=== PATIENT | male | born 1940 | race Caucasian/White ===

== ENCOUNTER 2017-01-22 06:31 | Day surgery (SDC) | payer BC, MEDICARE ==
[~2017-01-22] VITALS: Ht 160 cm; Wt 78.8 kg
[~2017-01-22 06:31] MED LIST: ASPI-730 PO; CHLO25TA2 PO; FENO48TA5 PO; FOLI-40 PO; INSU100I6 SQ; INSU3INS3 SQ; LOSA25TA34 PO; METF-200 PO; METH2.5T33 PO; OMEP40CA52 PO; PRAV10TA26 PO
--- OUTSIDE RECORDS SUMMARY | 2017-01-22 06:37 | XMS REPORT | Referral Summary ---
Author Author [facility] Organization [facility] Address Unknown Phone Unavailable Care Team Providers Care Equipment Validation Specialist Name Role Phone Nazanin Mueller Primary Care Physician [phone] Encounter VC Date(s): 07/04/16 - 07/04/16 [facility] [address] [place] [address] [place] [address]- [place] Discharge Diagnosis: History of skin cancer Discharge Diagnosis: Actinic keratosis Discharge Diagnosis: Dysphagia Discharge Diagnosis: Dyskinesia of esophagus Discharge Disposition: -Home or Self Care Attending Physician: Daniel Alaniz MD Admitting Physician: Daniel Alaniz MD Referring Physician: Gilberto Mueller MD Vital Signs Most recent to 1 oldest [Reference Range]: Temperature Tympanic 37 degC [36.6-38.1 degC] (07/04/16 1:19 PM) Peripheral Pulse 78 bpm Rate [60-100 bpm] (07/04/16 1:19 PM) Blood Pressure 144/72 mmHg [90-140/60-90 mmHg] *HI* (07/04/16 1:19 PM) SpO2 96 % (07/04/16 1:19 PM) Problem List Condition Effective Dates Status Health Status Informant Actinic keratosis Active (disorder)(Confirmed ) Aortic valve Active disease(Confirmed) Benign essential Active hypertension (disorder)(Confirmed ) CAD(Confirmed)1 Resolved Coronary Active arteriosclerosis (disorder)(Confirmed ) Osteoarthrosis, Active hand(Confirmed) Diabetes type 2, Active uncontrolled(Confirm ed) Dyspepsia and other Active specified disorders of function of stomach(Confirmed) Therapeutic drug Active monitoring(Confirmed ) Dyslipidemia(Confirm Resolved ed) Gastroesophageal Active reflux disease (disorder)(Confirmed ) H/O heart valve Resolved replacement with bioprosthetic valve(Confirmed) Hearing Active loss(Confirmed) Heart Active murmur(Confirmed) History of colon 1989 Resolved cancer(Confirmed)2, 3 Hyperlipidemia(Confi Active rmed) Hypertension(Confirm Resolved ed) Urinary Active frequency(Confirmed) Irritable Active colon(Confirmed) Hypertonicity of Active bladder(Confirmed) BCC (basal cell 2012 Active carcinoma of skin)(Confirmed)4 Obesity(Confirmed) Active patient Overweight(Confirmed Active ) PUD (peptic ulcer Active disease)(Confirmed) Rheumatoid arthritis Active (disorder)(Confirmed ) Ulcers(Confirmed) Active Varicella without Active complication(Confirm ed) 1Dr. Santiago 2Dukgeoffrey Pfeiffer colon cancer 3hx colon polyps 4right cheek Allergies, Adverse Reactions, Alerts No Known Allergies Medications aspirin 325 mg oral tablet 1 tabs, Oral, Daily Start Date: 03/04/14 Status: Ordered chlorthalidone 25 mg oral tablet See Instructions, TAKE ONE TABLET BY MOUTH DAILY, # 30 tabs, 5 Refill(s), eRx: [facility] #[id number], TAKE ONE TABLET BY MOUTH DAILY Start Date: 03/21/16 Status: Ordered Efudex 5% topical cream 1 antonino, Topical, BID, # 40 g, 0 Refill(s), Pharmacy: [facility] #[id number] Start Date: 07/04/16 Status: Ordered fenofibrate 48 mg oral tablet See Instructions, TAKE ONE TABLET BY MOUTH DAILY, # 30 tabs, 5 Refill(s), eRx: [facility] #[id number], TAKE ONE TABLET BY MOUTH DAILY Start Date: 06/29/16 Status: Ordered folic acid 1 mg oral tablet See Instructions, TAKE ONE TABLET BY MOUTH EVERY DAY, # 90 tabs, 3 Refill(s), Pharmacy: [facility] #[id number], TAKE ONE TABLET BY MOUTH EVERY DAY Start Date: 01/19/16 Status: Ordered FREESTYLE LITE TEST STRIP See Instructions, TEST BLOOD SUGARS 1 OR 2 TIMES DAILY, # 100 strip, 2 Refill(s) , eRx: [facility] #[id number], TEST BLOOD SUGARS 1 OR 2 TIMES DAILY Start Date: 03/21/16 Status: Ordered FREESTYLE LITE TEST STRIP See Instructions, TEST BLOOD SUGARS FASTING OR 2 HOURS AFTER MEALS., # 100 strip , 2 Refill(s), eRx: [facility] #[id number], TEST BLOOD SUGARS FASTING OR 2 HOURS AFTER MEALS. Start Date: 09/02/14 Status: Ordered Glucometer strips (DME) DME Item Freestyle lite test strips- Use to check blood sugar 1-2 times daily as directed, See Instructions, # 1 boxes, 3 Refill(s), Pharmacy: [facility] #[id number], Freestyle lite test strips- Use to check blood sugar 1-2 times daily as directed,... Start Date: 01/21/15 Status: Ordered Insulin Pin [place] (DME) DME Item Use to adminster insulin 4 times daily as directed, See Instructions, Supply Start Date: 03/04/14 Status: Ordered Insulin Pin [place] (DME) DME Item USE WITH INSULIN PENS QID FOR DIABETES TYPE 2 250.00, See Instructions , # 1 boxes, 3 Refill(s), Pharmacy: [facility] #[id number], USE WITH INSULIN PENS QID FOR DIABETES TYPE 2 250.00, Supply Start Date: 11/16/14 Status: Ordered Lantus Solostar Pen 100 units/mL subcutaneous solution See Instructions, INJECT 34 UNITS SUB-Q EVERY EVENING, # 24 unknown unit, 3 Refill(s), eRx: [facility] #[id number], INJECT 30 UNITS SUB-Q EVERY EVENING Start Date: 01/24/16 Status: Ordered losartan 25 mg oral tablet See Instructions, TAKE ONE TABLET BY MOUTH ONE TIME A DAY, # 30 tabs, 5 Refill(s ), eRx: [facility] #[id number], TAKE ONE TABLET BY MOUTH ONE TIME A DAY Start Date: 04/24/16 Status: Ordered metFORMIN 500 mg oral tablet See Instructions, TAKE TWO TABLETS BY MOUTH TWICE A DAY, # 120 tabs, 2 Refill(s) , eRx: [facility] #[id number], TAKE TWO TABLETS BY MOUTH TWICE A DAY Start Date: 03/22/16 Status: Ordered methotrexate 2.5 mg oral tablet See Instructions, TAKE 7 TABLETS BY MOUTH ONCE WEEKLY, # 91 tabs, 1 Refill(s), Pharmacy: [facility] #[id number], TAKE 7 TABLETS BY MOUTH ONCE WEEKLY Start Date: 01/19/16 Status: Ordered NovoLOG FlexPen 100 units/mL subcutaneous solution See Instructions, INJECT 10 UNITS SUBCUTANEOUSLY WITH BREAKFAST AND 12 UNITS WITH SUPPER, OR DIRECTED, # 24 unknown unit, 3 Refill(s), eRx: [facility] #[id number], INJECT 8 UNITS SUBCUTANEOUSLY WITH BREAKFAST AND 10 UNITS WITH SUPPER, OR DIRECTED Start Date: 02/09/16 Status: Ordered omeprazole 20 mg oral delayed release capsule See Instructions, TAKE ONE CAPSULE BY MOUTH EVERY DAY NEEDED, # 90 caps, eRx : [facility] #[id number], TAKE ONE CAPSULE BY MOUTH EVERY DAY NEEDED Start Date: 01/28/15 Status: Ordered pravastatin 10 mg oral tablet See Instructions, TAKE ONE TABLET BY MOUTH EVERY DAY, # 30 tabs, 5 Refill(s), eRx: [facility] #[id number], TAKE ONE TABLET BY MOUTH EVERY DAY Start Date: 02/15/16 Status: Ordered Results No data available for this section Immunizations Vaccine Date Refusal Reason influenza virus vaccine, inactivated 07/22/15 influenza virus vaccine, inactivated1 07/14/14 influenza virus vaccine, live 07/15/13 influenza virus vaccine, live 05/28/12 pneumococcal 13-valent conjugate vaccine 01/21/15 pneumococcal 23-polyvalent vaccine 10/18/09 pneumococcal 23-polyvalent vaccine 10/11/01 tetanus-diphth toxoids (Td) adult/adol 03/27/06 1Result Comment: [07/14/2014] SEE SCANNED DOCUMENT Procedures Procedure Date Related Diagnosis Body Site Excision of basal cell carcinoma1 01/06/16 Excision of basal cell carcinoma2 08/25/14 S/P colonoscopy3 11/27/13 Diabetic eye exam - neg by hx 08/2011 S/P colonoscopy4, 5 06/07/09 S/p knee replacement, left 2005 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 Also excision above right eyebrow with primary closure 2Left nares 3tubular adenoma x4, diverticula; repeat 3 years 4pandiverticulosis, pers hx for colon ca; repeat 5 years 5negative 6for 7colon cancer Social History Social History Type Response Smoking Status Never smoker Assessment and Plan Extracted from: Title: Ambulatory Patient Education Author: Daniel Alaniz MD Date: Family Medicine Actinic Keratosis Actinic keratosis is a precancerous growth on the skin. This means it could develop into skin cancer if it is not treated. About 1% of actinic keratoses turn into skin cancer within a year. It is important to have all such growths removed to prevent them from developing into skin cancer. CAUSES Actinic keratosis is caused by getting too much ultraviolet (UV) radiation from the sun or other UV light sources. RISK FACTORS Factors that increase your chances of getting actinic keratosis include: Having light-colored skin and blue eyes. Having blonde or red hair. Spending a lot of time in the sun. Age. The risk of actinic keratosis increases with age. SYMPTOMS Actinic keratosis growths look like scaly, rough spots of skin. They can be as small as a pinhead or as big as a quarter. They may itch, hurt, or feel sensitive. Sometimes there is a little tag of pink or quezada skin growing off them. In some cases, actinic keratoses are easier felt than seen. They do not go away with the use of moisturizing lotions or creams. Actinic keratoses appear most often on areas of skin that get a lot of sun exposure. These areas include the: Scalp. Face. Ears. Lips. Upper back. Backs of the hands. Forearms. DIAGNOSIS Your health care provider can usually tell what is wrong by performing a physical exam. A tissue sample (biopsy) may also be taken and examined under a microscope. TREATMENT Actinic keratosis can be treated several ways. Most treatments can be done in your health care provider's office. Treatment options may include: Curettage. A tool is used to gently scrape off the growth. Cryosurgery. Liquid nitrogen is applied to the growth to freeze it. The growth eventually falls off the skin. Medicated creams, such as 5-fluorouracil or imiquimod. The medicine destroys the cells in the growth. Chemical peels. Chemicals are applied to the growth and the outer layers of skin are peeled off. Photodynamic therapy. A drug that makes your skin more sensitive to light is applied to the skin. A strong, blue light is aimed at the skin and destroys the growth. PREVENTION To prevent future sun damage: Try to avoid the sun between 10:00 a.m. and 4:00 p.m. when it is the strongest. Use a sunscreen or sunblock with SPF 30 or greater. Apply sunscreen at least 30 minutes before exposure to the sun. Always wear protective hats, clothing, and sunglasses with UV protection. Avoid medicines, herbs, and foods that increase your sensitivity to sunlight. Avoid tanning beds. HOME CARE INSTRUCTIONS If your skin was covered with a bandage, change and remove the bandage as directed by your health care provider. Keep the treated area dry as directed by your health care provider. Apply any creams as prescribed by your health care provider. Follow the directions carefully. Check your skin regularly for any changes. Visit a skin doctor (sand mill operator facing sand) every year for a skin exam. SEEK MEDICAL CARE IF: Your skin does not heal and becomes irritated, red, or bleeds. You notice any changes or new growths on your skin. This information is not intended to replace advice given to you by your health care provider. Make sure you discuss any questions you have with your health care provider. Document Released: 11/30/2009 Document Revised: 09/24/2015 Document Reviewed: [employer] Interactive Patient Education 2016 [employer] No follow up information was provided. Extracted from: Title: Office Visit Note Author: Daniel Alaniz MD Date: 07/04/16 Assessment/Plan 1.Actinic keratosis Ordered: fluorouracil topical, 1 antonino, Topical, BID, # 40 g, 0 Refill(s), Pharmacy: [facility] #[id number] Office Visit Level 4 Est 65061 2.Dysphagia, Dyskinesia of esophagus Ordered: Office Visit Level 4 Est 38677 3.History of skin cancer Ordered: Office Visit Level 4 Est 49642 Plan: Esophagogastroduodenoscopywith possible dilatation. E prescription givenfor Efudexfor treatment of numerous actinic keratotic-appearing skin lesions. I did review the patient's chartincluding office note performed by his primary care physician from May 31, 2016. Reviewed a prioroperative note from excision of2 skin malignancies involving his face fromDecember 2015. Reviewed prior colonoscopy reportfromMay 2013. Patient was found to have several adenomatous colon polyps and a repeat colonoscopy was recommended at a 3 year interval. I informed the patient that with his history for dysphagia I would recommend proceeding with esophagogastroduodenoscopy with probable dilatation. Risk of endoscopy/dilatation was discussed with the patient. Risks include but are not inclusive of bleeding and/or perforation requiring surgery. Patient understood and was scheduled. In regards to his several actinic keratotic-appearing lesions involving his forehead andfaceE prescription was given for Efudex.
--- OUTSIDE RECORDS SUMMARY | 2017-01-22 06:37 | XMS REPORT | Referral Summary ---
Author Author [facility] Organization [facility] Address Unknown Phone Unavailable Care Team Providers Care Quality Process Auditor Name Role Phone Nazanin Mueller Primary Care Physician [phone] Encounter VC Date(s): 07/13/16 - 07/13/16 [facility] [address] [place] [address] [place] [address]- Discharge Diagnosis: Other specified rheumatoid arthritis, multiple sites Discharge Diagnosis: High risk medication use Discharge Disposition: 01-Home or Self Care Attending Physician: Rosa Gordon MD Admitting Physician: Rosa Gordon MD Referring Physician: Gilberto Mueller MD Vital Signs Most recent to 1 oldest [Reference Range]: Peripheral Pulse 73 bpm Rate [60-100 bpm] (07/13/16 3:22 PM) Respiratory Rate 16 br/min [14-20 br/min] (07/13/16 3:22 PM) Blood Pressure 128/77 mmHg [90-140/60-90 mmHg] (07/13/16 3:22 PM) Problem List Condition Effective Dates Status [...] Varicella without Active complication(Confirm ed) 1Dr. Santiago 2Dalex Pfeiffer colon cancer 3hx colon polyps 4right cheek Allergies, Adverse Reactions, Alerts No Known Allergies Medications aspirin 325 mg oral tablet 1 tabs, Oral, Daily Start Date: 03/04/14 Status: Ordered Carafate 1 g/10 mL oral suspension g mL, Oral, QIDACHS, 0 Refill(s) Start Date: 07/13/16 Status: Ordered chlorthalidone 25 mg oral tablet See Instructions, TAKE ONE TABLET BY MOUTH DAILY, # 30 tabs, 5 Refill(s), eRx: [facility] #[id number], TAKE ONE TABLET BY MOUTH DAILY Start Date: 03/21/16 Status: Ordered Efudex 5% topical cream 1 antonino, Topical, BID, # 40 g, 0 Refill(s), Pharmacy: [facility] #[id number] Start Date: 07/04/16 Status: Ordered fenofibrate 48 mg oral tablet See Instructions, TAKE ONE TABLET BY MOUTH DAILY, # 30 tabs, 5 Refill(s), eRx: [facility] #[id number], TAKE ONE TABLET BY MOUTH DAILY Start Date: 06/29/16 Status: Ordered folic acid 1 mg oral tablet See Instructions, TAKE ONE TABLET BY MOUTH EVERY DAY, # 90 tabs, 3 Refill(s), Pharmacy: [facility] #[id number], TAKE ONE TABLET BY MOUTH EVERY DAY Start Date: 01/19/16 Status: Ordered FREESTYLE LITE TEST STRIP See Instructions, TEST BLOOD SUGARS 1 OR 2 TIMES DAILY, # 100 strip, 2 Refill(s) , eRx: [facility] #[id number], TEST BLOOD SUGARS 1 OR 2 TIMES DAILY Start Date: 03/21/16 Status: Ordered FREESTYLE LITE TEST STRIP See Instructions, TEST BLOOD SUGARS FASTING OR 2 HOURS AFTER MEALS., # 100 strip , 2 Refill(s), eRx: [facility] #[id number], TEST BLOOD SUGARS FASTING OR 2 HOURS AFTER MEALS. Start Date: 09/02/14 Status: Ordered Glucometer strips (DME) DME Item Freestyle lite test strips- Use to check blood sugar 1-2 times daily as directed, See Instructions, # 1 boxes, 3 Refill(s), Pharmacy: [facility] #[id number], Freestyle lite test strips- Use to check blood sugar 1-2 times daily as directed,... Start Date: 01/21/15 Status: Ordered Insulin Pin [place] (DME) DME Item Use to adminster insulin 4 times daily as directed, See Instructions, Supply Start Date: 03/04/14 Status: Ordered Insulin Pin [place] (DME) DME Item USE WITH INSULIN PENS QID FOR DIABETES TYPE 2 250.00, See Instructions , # 1 boxes, 3 Refill(s), Pharmacy: [facility] #[id number], USE WITH INSULIN PENS QID FOR DIABETES TYPE 2 250.00, Supply Start Date: 11/16/14 Status: Ordered Lantus Solostar Pen 100 units/mL subcutaneous solution See Instructions, INJECT 34 UNITS SUB-Q EVERY EVENING, # 24 unknown unit, 3 Refill(s), eRx: [facility] #[id number], INJECT 30 UNITS SUB-Q EVERY EVENING Start Date: 01/24/16 Status: Ordered losartan 25 mg oral tablet See Instructions, TAKE ONE TABLET BY MOUTH ONE TIME A DAY, # 30 tabs, 5 Refill(s ), eRx: [facility] #[id number], TAKE ONE TABLET BY MOUTH ONE TIME A DAY Start Date: 04/24/16 Status: Ordered metFORMIN 500 mg oral tablet See Instructions, TAKE TWO TABLETS BY MOUTH TWICE A DAY, # 120 tabs, 1 Refill(s) , eRx: [facility] #[id number], TAKE TWO TABLETS BY MOUTH TWICE A DAY Start Date: 07/05/16 Status: Ordered methotrexate 2.5 mg oral tablet See Instructions, TAKE 7 TABLETS BY MOUTH ONCE WEEKLY, # 91 tabs, eRx: [facility] #[id number], TAKE 7 TABLETS BY MOUTH ONCE WEEKLY Start Date: 07/06/16 Status: Ordered NovoLOG FlexPen 100 units/mL subcutaneous solution See Instructions, INJECT 10 UNITS SUBCUTANEOUSLY WITH BREAKFAST AND 12 UNITS WITH SUPPER, OR DIRECTED, # 24 unknown unit, 3 Refill(s), eRx: [facility] #[id number], INJECT 8 UNITS SUBCUTANEOUSLY WITH BREAKFAST AND 10 UNITS WITH SUPPER, OR DIRECTED Start Date: 02/09/16 Status: Ordered omeprazole 20 mg oral delayed release capsule See Instructions, TAKE ONE CAPSULE BY MOUTH EVERY DAY NEEDED, # 90 caps, eRx : [facility] #[id number], TAKE ONE CAPSULE BY MOUTH EVERY DAY NEEDED Start Date: 01/28/15 Status: Ordered pravastatin 10 mg oral tablet See Instructions, TAKE ONE TABLET BY MOUTH EVERY DAY, # 30 tabs, 5 Refill(s), eRx: [facility] #[id number], TAKE ONE TABLET BY MOUTH EVERY DAY Start Date: 02/15/16 Status: Ordered Results Hematology Most recent to 1 oldest [Reference Range]: WBC [4.8-10.8 8.9 10*3/uL 10*3/uL] (07/13/16 3:55 PM) RBC [4.60-6.20] 4.33 *LOW* (07/13/16 3:55 PM) Hgb [14.0-18.0 13.3 gm/dL gm/dL] *LOW* (07/13/16 3:55 PM) Hct [42.0-52.0 %] 39.8 % *LOW* (07/13/16 3:55 PM) MCV [82.0-99.0 fL] 91.9 fL (07/13/16 3:55 PM) MCH [27.0-32.0 pg] 30.7 pg (07/13/16 3:55 PM) MCHC [32.0-36.0 33.4 gm/dL gm/dL] (07/13/16 3:55 PM) RDW [11.5-14.5 %] 14.3 % (07/13/16 3:55 PM) Platelet [150-400 311 10*3/uL 10*3/uL] (07/13/16 3:55 PM) MPV [8.8-14.8 fL] 9.9 fL (07/13/16 3:55 PM) Immature 0.3 % Granulocytes (07/13/16 3:55 PM) [0.0-1.0 %] Neutrophils [51-75 57 % %] (07/13/16 3:55 PM) Lymphocytes [20-46 29 % %] (07/13/16 3:55 PM) Monocytes [4-11 %] 10 % (07/13/16 3:55 PM) Eosinophils [0-4 %] 4 % (07/13/16 3:55 PM) Basophils [0-2 %] 0 % (07/13/16 3:55 PM) Neutro Absolute 5.01 10*3 [1.90-7.00 10*3] (07/13/16 3:55 PM) Lymph Absolute 2.60 10*3 [0.80-3.30 10*3] (07/13/16 3:55 PM) [place]kinson Absolute 0.89 10*3 [0.30-1.00 10*3] (07/13/16 3:55 PM) Eos Absolute 0.35 10*3 [0.00-0.50 10*3] (07/13/16 3:55 PM) Baso Absolute 0.01 10*3 [0.00-0.20 10*3] (07/13/16 3:55 PM) Chemistry Most recent to 1 oldest [Reference Range]: Sodium Lvl [135-144 139 mEq/L mEq/L] (07/13/16 3:55 PM) Potassium Lvl 4.1 mEq/L [3.5-5.2 mEq/L] (07/13/16 3:55 PM) Chloride [99-111 101 mEq/L mEq/L] (07/13/16 3:55 PM) CO2 [23-31 mEq/L] 26 mEq/L (07/13/16 3:55 PM) AGAP [3-20] 12 (07/13/16 3:55 PM) BUN [8-26 mg/dL] 28 mg/dL *HI* (07/13/16 3:55 PM) Glucose Lvl [70-99 197 mg/dL mg/dL] *HI* (07/13/16 3:55 PM) Creatinine Lvl 1.28 mg/dL [0.72-1.25 mg/dL] *HI* (07/13/16 3:55 PM) eGFR [>60 mL/min] 54 mL/min 1 *ABN* (07/13/16 3:55 PM) Calcium Lvl 9.7 mg/dL [8.9-10.5 mg/dL] (07/13/16 3:55 PM) Albumin Lvl [3.4-4.8 4.2 gm/dL gm/dL] (07/13/16 3:55 PM) Total Protein 6.9 gm/dL [6.0-7.6 gm/dL] (07/13/16 3:55 PM) Globulin [1.8-4.0 2.7 gm/dL gm/dL] (07/13/16 3:55 PM) ALT [0-55 U/L] 28 U/L (07/13/16 3:55 PM) AST [5-34 U/L] 28 U/L (07/13/16 3:55 PM) Alk Phos [40-150 58 U/L U/L] (07/13/16 3:55 PM) Bili Total [0.2-1.2 0.3 mg/dL mg/dL] (07/13/16 3:55 PM) 1Result Comment: Multiply eGFR results by 1.21 for race. Immunizations Vaccine Date Refusal Reason influenza virus vaccine, inactivated 07/13/16 influenza virus vaccine, inactivated 07/22/15 influenza virus [...] arthroscopy of left knee 05/2002 S/P left hemicolectomy1989 S/p appendectomy S/P excision of lipoma, shoulder S/P tonsillectomy 1Left lateral canthus with closure via rhomboid flap. Also excision above right eyebrow with primary closure 2Left nares 3tubular adenoma x4, diverticula; repeat 3 years 4pandiverticulosis, pers hx for colon ca; repeat 5 years 5negative 6for 7colon cancer Social History Social History Type Response Smoking Status Never smoker Assessment and Plan Extracted from: Title: Office Visit Note Author: Rosa Gordon MD Date: 07/13/16 Assessment/Plan 1.Other specified rheumatoid arthritis, multiple sites He is doing well. There is no active disease noted on examination. We will continue his current medications with the methotrexate 17.5 mg. I will check a CRP today. He will also schedule a DEXA scan to be done. Ordered: BD Bone Density DEXA Axial Skeleton C-Reactive Protein (CRP) CBC w/ Differential Comprehensive Metabolic Panel 2.High risk medication use I will check his blood counts liver tests today. Ordered: BD Bone Density DEXA Axial Skeleton C-Reactive Protein (CRP) CBC w/ Differential Comprehensive Metabolic Panel Follow-up in 4 months or sooner ifneeded.
--- OUTSIDE RECORDS SUMMARY | 2017-01-22 06:39 | XMS REPORT | Continuity of Care Document ---
Author Author [facility] Organization [facility] Address Unknown Phone Unavailable Allergies Active Description Code Type Severity Reaction Onset Reported/Identified Relationship to Patient Clinical Status Yes No Known Allergies NKMA N/A N/A 04/07/2014 Medications Problems Procedures Results Test Result Range Lipid Panel - 02/29/16 10:17 Cardiac Risk 3.1 0.0-5.7 Cholesterol 113 mg/dL 0-199 HDL Cholesterol 37 mg/dL 40-84 LDL Cholesterol 35 mg/dL 0-130 Triglycerides 203 mg/dL 0-149 VLDL Cholesterol 41 mg/dL 0-28 Hemoglobin A1C - 02/29/16 10:17 Hemoglobin A1C 8.2 % 4.1-5.6 Estimated Average Glucose - 02/29/16 10:17 Estimated Average Glucose 188.6 mg/dL Albumin/Creatinine Ratio, Urine - 02/29/16 10:20 Alb/Creat Ratio, Urine 7.8 mg/g 0.0-29.0 Albumin mg/dL, Urine 0.8 mg/dL 0.0-1.7 Creatinine mg/dL, Urine 102 mg/dL CBC With Platelet and Differential - 04/19/16 10:27 Absolute Basophils 0.01 10*3 0.00-0.20 Absolute Eosinophils 0.39 10*3 0.00-0.50 Absolute Lymphocytes 2.76 10*3 0.80-3.30 Absolute Monocytes 0.73 10*3 0.30-1.00 Absolute Neutrophils 4.48 10*3 1.90-7.00 Basophils 0 % 0-2 Eosinophils 5 % 0-4 HCT 40.7 % 42.0-52.0 HGB 13.6 g/dL 14.0-18.0 Immature Granulocytes 0.2 % 0.0-1.0 Lymphocytes 33 % 20-46 MCH 30.8 pg 27.0-32.0 MCHC 33.4 g/dL 32.0-36.0 MCV 92.3 fL 82.0-99.0 Monocytes 9 % 4-11 MPV 9.5 fL 8.8-14.8 Neutrophils 54 % 51-75 Platelet Count 290 K/uL 150-400 RBC 4.41 10*6/uL 4.60-6.20 RDW 14.6 % 11.5-14.5 WBC 8.4 K/uL 4.8-10.8 eGFR - 04/19/16 10:27 eGFR >60 mL/min >60 Comprehensive Metabolic Panel (CMP) - 04/19/16 10:27 Albumin 4.5 g/dL 3.4-4.8 Alkaline Phosphatase 55 U/L 40-150 ALT (SGPT) 40 U/L 0-55 Anion Gap 9 NA 3-20 AST (SGOT) 41 U/L 5-34 Bilirubin Total 0.6 mg/dL 0.2-1.2 BUN 21 mg/dL 8-26 Calcium 9.7 mg/dL 8.9-10.5 Chloride 102 mEq/L 99-111 CO2 28 mEq/L 23-31 Creatinine 1.16 mg/dL 0.72-1.25 Globulin 2.6 g/dL 1.8-4.0 Glucose 189 mg/dL 70-99 Potassium 4.7 mEq/L 3.5-5.2 Protein 7.1 g/dL 6.0-7.6 Sodium 139 mEq/L 135-144 Sedimentation Rate - 04/19/16 10:27 Sedimentation Rate 14 mm/h 0-15 Encounters ACCT No. Visit Date/Time Discharge Status Pt. Type Provider Facility Loc./Unit Complaint [id number] 11/19/2013 09:30:00 11/19/2013 23 :59:59 CLS Outpatient [id number] 10/29/2013 09:07:00 10/29/2013 23 :59:59 CLS Outpatient [id number] 10/17/2013 07:48:00 10/17/2013 23 :59:59 CLS Outpatient [id number] 10/14/2013 07:00:00 10/14/2013 23 :59:59 CLS Outpatient [id number] 10/02/2013 07:58:00 10/02/2013 23 :59:59 CLS Outpatient [id number] 07/15/2013 07:31:00 07/15/2013 23 :59:59 CLS Outpatient
--- OUTSIDE RECORDS SUMMARY | 2017-01-22 06:39 | XMS REPORT | Continuity of Care Document ---
Author Author [facility] Organization [facility] Address Unknown Phone Unavailable Support Name Relationship Address Phone ARLETTE LEHMAN MD Caregiver [address] [place] [address] [place] [address] Unavailable RAUL BILLS FACS, MD Caregiver [address] [place] [address] [place] [address] Unavailable GLADYS HAIR Next Of Kin [address] [place] [address] Insurance Providers Guarantor Morris Hair Address [address] [place] [address] Email DENIED/NO TO PORTAL Payer Medicare Policy Number [id number] Subscriber's Name Morris Hair Relationship 18 Self Effective Date 03 Payer [employer] Other Policy Number [id number] Subscriber's Name Gladys Hair Dmitry Relationship 01 Spouse Group Number [id number] Advance Directives Directive Response Recorded Date/Time Ordered Resuscitation Status Full Code 07/05/16 3:19pm Resuscitation Documents on File No 07/06/16 6:19am DPOA for Healthcare Only No 07/06/16 6:19am Living Will No 07/06/16 6:19am Problems No problem information available. Medications Current Home Medications Medication Dose Units Route Directions Days Qty Instructions Start Date Aspirin 325 Mg Tablet 325 Mg Oral Daily 11/26/13 Chlorthalidone 25 Mg Tablet 1 Tab Oral Daily 01/05/16 Fenofibrate Nanocrystallized (Fenofibrate) 48 Mg Tablet 1 Tab Oral Daily 01/05/16 Folic Acid 1 Mg Tablet 1 Mg Oral Daily 06/07/09 Insulin Glargine (Lantus Solostar) 1 Unit Pen 34 Unit Sub-Q Bedtime 11/26/13 Insulin Lispro (Humalog) 100 U/Ml Insuln.pen Unit Sub-Q Twice A Day 10 UNITS WITH BREAKFAST 12 UNITS WITH SUPPER 11/26/13 Losartan Potassium 25 Mg Tablet 25 Mg Oral Daily 11/26/13 Metformin Hcl 500 Mg Tablet 1,000 Mg Oral Twice A Day 06/07/09 Methotrexate Sodium (Methotrexate) 2.5 Mg Tablet 17.5 Mg Oral Qwkly 7 TABS WEEKLY 06/07/09 Omeprazole 40 Mg Capsule. 1 Cap Oral Twice A Day 30 Days 60 Capsule 07/06/16 Pravastatin Sodium 10 Mg Tablet 10 Mg Oral Bedtime 11/26/13 Sucralfate (Carafate) 1 Gm/10 Ml Oral.susp 1 G Oral Before Meals And At Bedtime 30 Days 07/06/16 Past Home Medications Medication Directions Ordered Status Ergocalciferol (Vitamin D) 400 Unit Capsule, 400 Unit Oral Daily 06/04/09 Discontinued Prednisone 5 Mg Tablet, 5 Mg Oral Daily 06/07/09 Discontinued Social History Social History Problem Response Recorded Date/Time Onset Date Status Reason for Hospitalization EGD 07/06/2016 8:27am Not Applicable Not Applicable Chewing Tobacco Status N HX 11/27/2013 6:26am Not Applicable Not Applicable Hx Substance Use No 07/06/2016 6:51am Not Applicable Not Applicable Hx Alcohol Use No 07/06/2016 6:51am Not Applicable Not Applicable Has the pt used tobacco in the last 12 months No 07/06/2016 6:51am Not Applicable Not Applicable Query Response Start Date Stop Date Smoking Status Former smoker Hospital Discharge Instructions No hospital discharge instructions. Plan of Care Discharge Date 07/06/16 9:13am Instructions/Education Provided [facility] Prescriptions See Medication Section Functional Status Query Response Date Recorded Ability to complete ADL's impeded by No change July 06, 2016 6:19am Allergies, Adverse Reactions, Alerts Allergen Type Severity Reaction Status Last Updated No Known Drug Allergies Allergy Unknown Active 06/04/09 Immunizations Query Response on File Recorded Date/Time Hx Influenza Vaccination Y fall 201407/06/16 6:51am Hx Pneumococcal Vaccination No 07/06/16 6:51am Hx Influenza Vaccination Y fall 201407/06/16 6:51am Vital Signs Acute Vital Signs Vital Response Date/Time Temperature (Fahrenheit) 98.3 deg F (96.8 - 99.1) 07/06/2016 8:13am Temperature (Calculated Celsius) 36.72812 degrees C (36.0 - 37.3) 07/06/2016 8:13am Temperature Source Oral 07/06/2016 8:13am Pulse Rate (adult) 64 bpm (60 - 100) 07/06/2016 9:00am Respiratory Rate 15 breaths/min (10 - 20) 07/06/2016 9:00am O2 Sat by Pulse Oximetry 95 % (90 - 100) 07/06/2016 9:00am Oxygen Delivery Method Room Air 07/06/2016 9:00am Oxygen Flow Rate 2.00 L/min 07/06/2016 8:20am Blood Pressure 127/70 mm Hg 07/06/2016 9:00am Blood Pressure Source Automatic Cuff 07/06/2016 9:00am Height (Feet) 5 feet 07/06/2016 6:09am Height (Inches) 3.50 inches 07/06/2016 6:09am Weight (Kilograms) 79.600 kg 07/06/2016 6:09am Body Mass Index (BMI) 30.6 07/06/2016 6:09am Results No known relevant diagnostic tests, laboratory data and/or discharge summary. Procedures Procedure Status Date Provider(s) Esophagogastroduodenoscopy (EGD) with closed biopsy Completed 07/06/16 RAUL BILLS MD, FACS, [facility] Encounters Encounter Location Arrival/Admit Date Discharge/Depart Date Attending Provider Departed [facility] Day Care [facility] 07/06/16 5:53am 07/06/16 9: 13am RAUL BILLS FACS, MD
[2017-01-22 06:47] VITALS: Ht 160 cm; Wt 78.8 kg
[2017-01-22 06:48] VITALS: BP 167/91; PULSE 81; RESP 16; TEMP 97.6; O2SAT 93
[2017-01-22] MEDS ORDERED: LR 1,000 ML IV SCH (07:00)
[2017-01-22] MEDS ORDERED: LIDOCAINE 1% (10mg/ml) 2ml SDV INJ ONE (07:00)
--- NOTE | 2017-01-22 07:23 | ANESPREOP ---
Anesthesia Record Date and Time DATE: 01/22/17 TIME: 07:21 Pre-Op Diagnosis hx. of colon ca Proposed Surgical Procedure COLONOSCOPY Allergies: Coded Allergies: No Known Drug Allergies (Verified Allergy, Unknown, 01/22/17) Ht/Wt/BMI Height: 5 ' 3.00 " Weight: 78.800 kg BMI: 30.8 kg/m2 Vital Signs Date Time Temp Pulse Resp B/P Pulse Ox O2 Delivery O2 Flow Rate FiO2 01/22/17 06:48 97.6 81 16 167/91 93 Room Air Medications Inpatient Medications Current Medications Medications (Trade) Dose Ordered Sig/Jaz Start Time Stop Time Status Last Admin Dose Admin Lactated Ringer's (Lactated Ringers) 1,000 ml @ 30 mls/hr Q24H 01/22/17 07:00 01/22/17 07:08 30 MLS/HR Aspirin (Aspirin) 325 Mg Tablet, 325 MG PO DAILY, (Reported) Last Taken: on 01/14/17 Chlorthalidone (Chlorthalidone) 25 Mg Tablet, 1 TAB PO DAILY, (Reported) Last Taken: on 01/21/17 Fenofibrate Nanocrystallized (Fenofibrate) 48 Mg Tablet, 1 TAB PO DAILY, (Reported) Last Taken: on 01/21/17 0800 Folic Acid (Folic Acid) 1 Mg Tablet, 1 MG PO DAILY, (Reported) Last Taken: on 01/21/17 0800 Insulin Glargine PEN (Lantus Solostar) 1 Unit Pen, 36 UNIT SQ HS, (Reported) Last Taken: on 01/21/17 2100 Insulin Lispro (Humalog) 100 U/Ml Insuln.pen, 11 UNIT SQ BID, (Reported) 10 UNITS WITH BREAKFAST 12 UNITS WITH SUPPER Last Taken: on 01/20/17 Losartan Potassium (Losartan Potassium) 25 Mg Tablet , 25 MG PO DAILY, (Reported) Last Taken: on 01/21/17 0800 Metformin Hcl (Metformin Hcl) 500 Mg Tablet, 1, 000 MG PO BID, (Reported) Last Taken: on 01/21/17 1800 Methotrexate Sodium (Methotrexate) 2.5 Mg Tablet , 17.5 MG PO QWKLY, (Reported) 7 TABS WEEKLY Last Taken: on Unknown Date & Time Omeprazole (Omeprazole) 40 Mg Capsule.dr , 1 CAP PO BID Last Taken: on 01/21/17 1830 Pravastatin Sodium (Pravastatin Sodium) 10 Mg Tablet, 10 MG PO HS, (Reported) Last Taken: on 01/21/17 1830 Currently on Beta Tristen: No Medical/Surgical History Anesthesia PMH: Reports: *Diabetes (TYPE 2), *Hypertension, Arthritis (OA OF HAND, RA), Cancer (BCC SKIN-REMOVED, COLON CA-HEMICOLECTOMY), Hiatal Hernia, Hyperlipidemia, Obesity, Pneumonia (HX), Reflux, Sleep Apnea (DOES NOT WEAR CPAP ), Denies: Anesthesia Reactions (NO AIRWAY ISSUES KNOWN), CHF, Clotting Problems , Deep Vein Thrombosis, Glaucoma, Malignant Hyperthermia, Renal Disease, Thyroid Disease Smoking Status: Former smoker Has pt. smoked today?: No Use Chewing Tobacco?: No Second Hand Exposure: No Substance Use Type: does not use Alcohol Intake: none Past Surgical History Orthopedic Surgeries: Yes - L KNEE SCOPE, L TKA Abdominal Surgeries: Yes - LEFT HEMICOLECTOMY, APPY Genitourinary Surgeries: No Cardiac Surgeries: Yes - AORTIC VALVE REPALCEMENT Endocrine Surgeries: No Reproductive Surgeries: No Neurological Surgeries: No Ear Surgeries: No Nose Surgeries: No Throat Surgeries: Yes - TONSILLECTOMY Other Surgeries: Yes - EXCISION BCC, COLONOSCOPIES, EXCISON OF LIPOMA Anesthesia Adverse Reactions: FOUND none Pertinent Findings EKG Rhythm: Sinus Rhythm Physical Exam Respiratory: Bilat breath sounds equal, Lungs clear Cardiovascular: FOUND Regular rate, rhythm, FOUND No murmur Airway Assessment Mallampati Score: II TMD: 2 Fingerbreadths Neck Extension: Fair Teeth: Upper Dentures, Lower Dentures Overall Assessment: No Airway Concerns ASA: 2 Plan Anesthesia Plan: TIVA Discussion Discussed risks/options/alternatives of anesthesia and questions answered. Patient consents. Nursing pain assessment noted. Attestation Statement Prior to the delivery of any anesthetic medication, I examined the patient, developed the plan, obtained the patient's consent and discussed the risk and benefits of the procedure with the patient/guardian. RYAN JACQUES CRNA January 22, 2017 07:22
[2017-01-22] MEDS ORDERED: LIDOCAINE 1% (10mg/ml) 2ml SDV ONE (08:44)
[2017-01-22] MEDS ORDERED: PROPOFOL 500mg 50 ML IV ONE (08:44)
[2017-01-22 09:09] VITALS: BP 92/50; PULSE 66; RESP 12; TEMP 98; O2SAT 91
[2017-01-22 09:10] VITALS: O2SAT 97
[2017-01-22 09:11] VITALS: O2SAT 95
[2017-01-22 09:20] VITALS: BP 130/71; PULSE 65; RESP 20; O2SAT 95
[2017-01-22 09:35] VITALS: BP 136/89; PULSE 62; RESP 15; O2SAT 93
--- NOTE | 2017-01-22 09:44 | ANESPO ---
Post-Op Note Date 01/22/17 Time: 09:43 Status Pt Participated in Evaluation: Pt participated in person Vital Signs Date Time Temp Pulse Resp B/P Pulse Ox O2 Delivery O2 Flow Rate FiO2 01/22/17 09:35 62 15 136/89 93 Room Air 01/22/17 09:10 5.00 01/22/17 09:09 98.0 Respiratory Function: Airway patent, Regular respirations Cardiovascular Function: Regular pulse Mental Status: Alert/oriented Pain Level Intensity: 0 Hydration: Taking po fluids Complications during Recovery None apparent Post-Anesthesia Notes pt. natalio. well Follow-Up Instructions Instructions Per Surgeon Additional Information none RYAN JACQUES CRNA January 22, 2017 09:44
--- NOTE | 2017-01-22 15:44 | OPNOTEF ---
DATE OF SERVICE 01/22/2017 SURGEON Daniel Alaniz MD PREOPERATIVE DIAGNOSES Personal history of colon cancer, personal history for adenomatous colon polyps. POSTOPERATIVE DIAGNOSES Personal history of colon cancer, personal history for adenomatous colon polyps, sigmoid diverticulosis. PROCEDURE Colonoscopy. ANESTHESIA TIVA BRIEF HISTORY/INDICATIONS Mr. Hair is a 76-year-old gentleman who has a personal history for colon cancer as well as a personal history for adenomatous colon polyps. Patient presents today to undergo followup colonoscopy. For completeness please refer to notes included in the patient's chart. FINDINGS Upon colonoscopy the patient was found to have a moderate number of diverticula mostly within the sigmoid colon region. There was, however, no evidence for angiodysplastic lesions, polyps or ina malignancies. DESCRIPTION OF PROCEDURE After informed consent was obtained the patient was brought to the endoscopy suite and placed on the table in left lateral decubitus position. Patient subsequently underwent total intravenous anesthesia by the nurse nuclear plant technical advisor at my request. Formal timeout was then completed. Next, a digital rectal exam was performed. Normal sphincter tone. No rectal masses were appreciated. An Olympus colonoscope was inserted into the anus and advanced through the lumen of the colon under direct visualization at all times until the cecum was ascertained. Triangulation of the tenia coli, ileocecal valve and appendiceal lumen were all visualized. The scope was slowly withdrawn, maintaining visualization of the lumen at all times. As stated above, the entire colon was without evidence for angiodysplastic lesions, polyps or ina malignancies. The patient was found to have a few scattered diverticula throughout the entire colon with the majority of them being located within the sigmoid colon region. Once the colonoscope was drawn back to the rectal vault a J-maneuver was performed. No worrisome perianal pathology was noted. Scope was allowed to straighten and was withdrawn through the anal verge. Patient tolerated the procedure without difficulty and was sent back to the preop area in stable condition. At the age of 76 this very well may be the last colonoscopy the patient would need in his lifetime unless new specific indications should arise in the future. CHELSY
== END 2017-01-22 09:47 | disposition home or self-care (01) ==
LOC: SCU 06:31
PROVIDERS: ATTEND Surgery
DX: Z12.11 Encounter for screening for malignant neoplasm of colon (principal); K57.30 Diverticulosis of large intestine without perforation or abscess without bleeding; Z85.038 Personal history of other malignant neoplasm of large intestine; Z86.010 Personal history of colon polyps; Z80.0 Family history of malignant neoplasm of digestive organs; E11.9 Type 2 diabetes mellitus without complications; Z79.4 Long term (current) use of insulin
CPT/HCPCS: 45378; 82948; J2704; J7120